=== PATIENT | female | born 1965 | race Hispanic/Latino ===

== ENCOUNTER 2018-09-25 06:35 | Outpatient (CLI) | payer OTHER ==
--- NOTE | 2018-09-25 09:14 | ULT ---
PELVIC ULTRASOUND INCLUDING TRANSABDOMINAL AND TRANSVAGINAL AND VASCULAR DUPLEX WITH COLOR AND SPECTR AL DOPPLER IMAGING: Date: 09/25/18 HISTORY: Pelvic pain, menopause. FINDINGS: Uterus measures 8.4 x 3.4 x 4.3 cm. Endometrium measures 0.5 cm. Right ovary 1.7 x 2.0 x 2.6 cm. 0.9 x 1.1 cm right ovarian follicle. Left ovary not visualized. Incidental nabothian cyst. No abnormal fl uid collection. IMPRESSION: Nonvisualized left ovary. Otherwise, unremarkable pelvic ultrasound. POS: [facility]
== END 2018-09-25 06:36 | disposition home or self-care (01) ==
LOC: BICULT 06:35
PROVIDERS: ATTEND Nurse Practitioner
DX: R10.2 Pelvic and perineal pain (principal)
CPT/HCPCS: 76856

== ENCOUNTER 2019-10-25 21:38 | Emergency (ER) | payer BC ==
[2019-10-25 23:12] LABS: #Lymphocytes 2.1 thou/uL (1.20-3.40); #Monocytes 0.3 thou/uL (0.11-0.59); %Basophils 0.2 % (0.0-1.0); %Eosinophils 0.4 % (0.0-10.0); %Lymphocytes 47.8 % (21.0-51.0); %Neutrophils 45.7 % (42.0-75.0); Hemoglobin 15.1 g/dL (12.0-16.0); Mean Corpuscular Hemoglobin 32.2 pg (27.0-31.0); Mean Corpuscular Volume 92.1 fL (78.0-98.0); Mean Platelet Volume 8.8 fL (7.4-10.4); Platelet Count 193 thou/uL (130-400); RBC Distribution Width 11.3 % (11.5-14.5); White Blood Cell (WBC) Count 4.5 thou/uL (4.8-10.8)
[2019-10-25 23:33] LABS: ALT (SGPT) 17 U/L (8-55); AST (SGOT) 21 U/L (5-34); Albumin 4.6 g/dL (3.5-5.0); Alkaline Phosphatase 56 U/L (40-110); Anion Gap 15 mmol/L (10-20); BUN (Urea Nitrogen) 11 mg/dL (9.8-20.1); Bilirubin, Total 0.9 mg/dL (0.2-1.2); CK (CPK) 475 U/L (29-168); Calc. Creatinine Clearance 0 mL/min (70-130); Calcium 9.7 mg/dL (7.8-10.44); Carbon Dioxide 22 mmol/L (22-29); Chloride 108 mmol/L (98-107); Estimated GFR-MDRD 75; Globulin 3.3 g/dL (2.4-3.5); Glucose 98 mg/dL (70-105); Lipase 31 U/L (8-78); Protein, Total 7.9 g/dL (6.0-8.3); Sodium 142 mmol/L (136-145)
[2019-10-25] MEDS ORDERED: Aspirin 325 MG TAB ONE (23:56)
--- NOTE | 2019-10-26 08:56 | RAD ---
FRONTAL RADIOGRAPH CHEST: DATE: 10/25/2019. COMPARISON: None. HISTORY: Chest pain and shortness of breath. FINDINGS: Lungs are clear. Heart and mediastinal contours are unremarkable. IMPRESSION: No acute findings. POS: [facility]
== END 2019-10-26 00:03 | disposition home or self-care (01) ==
LOC: ERS 21:38
DX: R07.9 Chest pain, unspecified (principal); I10 Essential (primary) hypertension
CPT/HCPCS: 71045; 80053; 82550; 83690; 84484; 85025; 93005; 94760

== ENCOUNTER 2022-05-09 09:43 | Emergency (ER) | payer OTHER ==
[2022-05-09] MEDS ORDERED: Ibuprofen 200 MG TAB ONE (11:13)
== END 2022-05-09 11:22 | disposition home or self-care (01) ==
LOC: ERS 09:43
DX: S90.01XA Contusion of right ankle, initial encounter (principal); I10 Essential (primary) hypertension; W10.9XXA Fall (on) (from) unspecified stairs and steps, initial encounter